=== PATIENT | female | born 1940 | race Caucasian/White ===

== ENCOUNTER 2019-06-04 14:19 | Emergency (ER) | payer OTHER ==
[2019-06-04 14:42] VITALS: BP 127/73; PULSE 99; TEMP 98.1; BMI 27.7
[2019-06-04 15:26] LABS: ALBUMIN 3.6 g/dl (3.4-5.0); BASO % 0.6 % (0-2.0); BILIRUBIN,TOTAL 0.7 mg/dl (0.2-1); CALCIUM 10.3 mg/dl (8.5-10); CREATININE 0.9 mg/dl (0.55-1.3); EOS % 2.2 % (0-4.5); HEMATOCRIT 36.6 % (32.4-45.2); HEMOGLOBIN 12.2 GM/dl (10.7-15.3); LYMPH % 16.6 % (8-40); MCH 29.9 pg (25.7-33.7); MCHC 33.3 g/dl (32.0-36.0); MEAN PLT VOLUME 8.3 fl (7.5-11.1); MONO % 7.3 % (3.8-10.2); NEUT % 73.3 % (42.8-82.8); PLATELET COUNT 297 K/MM3 (134-434); POTASSIUM 3.7 mmol/L (3.5-5.1); RBC 4.07 M/mm3 (3.60-5.2); RDW 13.4 % (11.6-15.6); TOT PROT 6.9 g/dl (6.4-8.2); WHITE BLOOD COUNT 7.3 K/mm3 (4.0-10.8)
--- NOTE | 2019-06-04 16:09 | PDOC ---
History of Present Illness - General Chief Complaint: Pain Stated Complaint: R/O DVT, CHF Time Seen by Provider: 06/04/19 14:20 - History of Present Illness Initial Comments: 06/04/19 16:12 79 years old with no significant past medical history presents to the emergency department with atraumatic lower extremity discomfort. No history of direct injury some swelling is noted to her left lower extremity she saw her primary care provider sent her to the emergency department for a basic CHF and rule out DVT work-up no chest pain no shortness of breath no nausea no vomiting diarrhea symptoms are mild to moderate persistent constant no exacerbating alleviating factors. Past History - Past Medical History Allergies/Adverse Reactions: Allergies Allergy/AdvReac Type Severity Reaction Status Date / Time azithromycin Allergy Mild "upset Verified 03/23/14 18:50 stomach" Home Medications: Ambulatory Orders Dicyclomine HCl 30 mg PO PRN PRN 03/23/14 Lactobacillus Acidophilus [Probiotic] 1 each PO DAILY PRN 03/23/14 Ursodiol 3 tab PO DAILY 03/23/14 Zolpidem Tartrate [Ambien] 5 mg PO HS 03/23/14 Olopatadine HCl 1 drop OU DAILY 06/04/19 Pitavastatin Calcium [Livalo] 2 mg PO BID 06/04/19 Polyethylene Glycol 3350 [Miralax 119 gm Btl -] 17 gm PO DAILY PRN 06/04/19 COPD: No GI Disorders: Yes (IBS) Hypercholesterolemia: Yes Liver Disease: Yes (BILIARY LIVER DISEASE) - Surgical History Abdominal Surgery: Yes Cholecystectomy: Yes - Psycho Social/Smoking Cessation Hx Smoking History: Never smoked Have you smoked in the past 12 months: No If you are a former smoker, when did you quit?: 1970 Hx Alcohol Use: No Drug/Substance Use Hx: No Substance Use Type: None Hx Substance Use Treatment: No Review of Systems - Review of Systems Comments:: 06/04/19 16:12 ROS: A complete review of 10 out of 10 review of systems is taken and is negative apart from what is previously mentioned below and in the HPI. *Physical Exam - Vital Signs Last Vital Signs Temp Pulse Resp BP Pulse Ox 98.1 F 99 H 16 127/73 99 06/04/19 14:20 06/04/19 14:20 06/04/19 14:20 06/04/19 14:20 06/04/19 14:20 - Physical Exam 06/04/19 16:12 Vitals: Triage Vital signs reviewed General Appearance: No acute distress, well nourished well developed, Cardiac: Regular rate and rhythym, no murmurs, no rubs, no gallops, Lungs: Clear to auscultation bilateral, good air movement bilaterally, Abdomen: Soft, non distended, normal bowel sounds, non tender to palpation Extremities: Full range of motion to all extremities, no cyanosis, clubbing, mild left lower leg extremity swelling Skin: Warm and dry, no rashes or lesions, no rash, no petechiae Neuro: AOX3; cranial Nerves 2-12 grossly intact, strength intact to all extremities, sensation intact to all extremities, gait normal Psych: Normal mood, normal affect ED Treatment Course - LABORATORY CBC & Chemistry Diagram: 06/04/19 14:50 06/04/19 14:50 - ADDITIONAL ORDERS Additional order review: Laboratory Results 06/04/19 06/04/19 14:50 14:50 Sodium 137 Potassium 3.7 Chloride 104 Carbon Dioxide 26 Anion Gap 7 L BUN 20.0 H Creatinine 0.9 Est GFR (CKD-EPI)AfAm 70.48 Est GFR (CKD-EPI)NonAf 60.81 Random Glucose 117 H Calcium 10.3 H Total Bilirubin 0.7 AST 17 ALT 15 Alkaline Phosphatase 71 Troponin I < 0.03 Total Protein 6.9 Albumin 3.6 06/04/19 14:50 RBC 4.07 MCV 90.0 MCHC 33.3 RDW 13.4 MPV 8.3 Neutrophils % 73.3 Lymphocytes % 16.6 Monocytes % 7.3 Eosinophils % 2.2 Basophils % 0.6 - RADIOLOGY Radiology Studies Ordered: Category Date Time Status CXRPORT [CHEST X-RAY PORTABLE*] [RAD] Stat Radiology 06/04/19 14:21 Completed DUPLEX VASCUL US-1 LEG [US] Stat Ultrasound 06/04/19 14:21 Completed Medical Decision Making - Medical Decision Making 06/04/19 16:13 Well-appearing no apparent distress with very mild lower extremity swelling no chest pain or shortness of breath We will check labs EKG ultrasound observe and reassess EKG performed at 1457 demonstrates normal sinus rhythm [address] elevations or T wave inversions Interpreted by me. Ultrasound negative for DVT Discharge - Discharge Information Problems reviewed: Yes Clinical Impression/Diagnosis: Leg pain Qualifiers: Laterality: left Qualified Code(s): M79.605 - Pain in left leg Condition: Good Disposition: HOME - Admission No - Follow up/Referral Referrals: Ritika Brown [Primary Care Provider] - - Patient Discharge Instructions Additional Instructions: Follow-up with your doctor next week. Rest. [id number] Tylenol as directed on package as needed for pain. Return to the emergency department for any chest pain shortness of breath severe worsening symptoms or further concerns. - Post Discharge Activity
--- NOTE | 2019-06-05 13:03 | EKG ---
Test Reason : Blood Pressure : / mmHG Vent. Rate : 093 BPM Atrial Rate : 093 BPM P-R Int : 172 ms QRS Dur : 084 ms QT Int : 374 ms P-R-T Axes : 045 039 030 degrees QTc Int : 465 ms NORMAL SINUS RHYTHM WHEN COMPARED WITH ECG OF 12-MAR-2019 14:38, NO SIGNIFICANT CHANGE WAS FOUND Confirmed by CARLOS STEVENS MD ([id number]) on 06/05/2019 1:03:10 PM Referred By: SORIN MCMILLAN Confirmed By:CARLOS STEVENS MD
== END 2019-06-04 16:38 | disposition home or self-care (01) ==
LOC: FER 14:19
DX: M79.605 Pain in left leg (principal); Z88.8 Allergy status to other drugs, medicaments and biological substances; Z87.891 Personal history of nicotine dependence; K76.9 Liver disease, unspecified; K58.9 Irritable bowel syndrome, unspecified; E78.00 Pure hypercholesterolemia, unspecified
CPT/HCPCS: 36415; 71045-TC-FY; 80053; 83880; 84484; 85025; 93005; 93971-TC; 99282-25

== ENCOUNTER 2023-02-27 07:12 | Inpatient (IN) | payer OTHER, BC ==
[2023-02-27] MEDS ORDERED: SODIUM CHLORIDE 1,000 ML IV STA (08:44)
[2023-02-27 09:48] LABS: BASO % 0.1 % (0-2.0); HEMATOCRIT 37.9 % (32.4-45.2); HEMOGLOBIN 12.8 GM/dL (10.7-15.3); MCH 29.8 pg (25.7-33.7); MCHC 33.8 g/dl (32.0-36.0); MEAN CELL VOLUME 88.1 fl (80-96); MEAN PLT VOLUME 7.7 fl (7.5-11.1); MONO % 6.7 % (3.8-10.2); NEUT % 89.2 % (42.8-82.8); PLATELET COUNT 239 10^3/uL (134-434); RBC 4.31 M/mm3 (3.60-5.2); RDW 14.4 % (11.6-15.6); WHITE BLOOD COUNT 14.4 K/mm3 (4.0-10.0)
[2023-02-27] MEDS ORDERED: ACETAMINOPHEN 1000 MG/100 ML BAG IVPB ONE (09:50)
[2023-02-27 10:10] LABS: POTASSIUM 3.4 mmol/L (3.5-5.1)
[2023-02-27 10:13] LABS: ALBUMIN 3.3 g/dl (3.4-5.0); BLOOD UREA NITROGEN 21.1 mg/dL (7-18); CALCIUM 10.4 mg/dL (8.5-10.1); MAGNESIUM 2.2 mg/dL (1.8-2.4)
[2023-02-27 10:18] LABS: BILIRUBIN,TOTAL 1.1 mg/dL (0.2-1)
[2023-02-27] MEDS ORDERED: SODIUM CHLORIDE 500 ML IV STA (10:35)
[2023-02-27 10:46] LABS: EPI CELLS 25 /uL (0-25.1); HYALINE CASTS 1 /uL (0-3.1); PH,URINE 5.5 (5.0-8.0); URINE APPEARANCE CLOUDY; URINE BACTERIA 105 /uL (0-1359); URINE BILIRUBIN NEGATIVE (NEGATIVE); URINE COLOR YELLOW; URINE GLUCOSE (UA) NEGATIVE (NEGATIVE); URINE KETONE 1+ (NEGATIVE); URINE LEUK ESTERASE TRACE (NEGATIVE); URINE NITRITE NEGATIVE (NEGATIVE); URINE PROTEIN 1+ (NEGATIVE); URINE UROBILINOGEN 0.2 mg/dL (0.2-1.0); URINE WBC 40 /uL (0-25.8)
[2023-02-27] MEDS ORDERED: CEFTRIAXONE 1,000 MG in DEXTROSE 5%-WATER - 50 ML IVPB ONE (10:57)
[2023-02-27] MEDS ORDERED: ACETAMINOPHEN INJECTION 100 ML IVPB ONE (10:58)
[2023-02-27 11:21] LABS: URINE CRYSTALS 0-2 /hpf; URINE RBC 28.6 /uL (0-23.9)
[2023-02-27] MEDS ORDERED: CEFTRIAXONE 1 GM/50 ML BAG ONE (11:27)
[2023-02-27] MEDS ORDERED: ASPIRIN 81 MG CHEWABLE TABLETS PO ONE (11:29)
[2023-02-27] MEDS ORDERED: ASPIRIN COATED 81 MG TABLET.EC ONE (11:40)
[2023-02-27] MEDS ORDERED: POTASSIUM CHLORIDE ORAL LIQUID 20 MEQ/15 ML PO ONE (15:18)
[2023-02-27 18:11] VITALS: BMI 29.1
[2023-02-27] MEDS: SODIUM CHLORIDE 1,000 ML IV SCH (18:35)
[2023-02-27] MEDS ORDERED: PNEUMOC 20-VAL CONJ-DIP CRM/PF 0.5 ML SYRINGE IM ONE (22:00)
[2023-02-28 08:06] LABS: POTASSIUM 3.3 mmol/L (3.5-5.1)
[2023-02-28 08:07] LABS: BASO % 0.3 % (0-2.0); EOS % 1.7 % (0-4.5); HEMATOCRIT 31.4 % (32.4-45.2); HEMOGLOBIN 10.6 GM/dL (10.7-15.3); LYMPH % 11.4 % (8-40); MCHC 33.8 g/dl (32.0-36.0); MEAN CELL VOLUME 88.7 fl (80-96); MEAN PLT VOLUME 8.5 fl (7.5-11.1); MONO % 7.2 % (3.8-10.2); NEUT % 79.4 % (42.8-82.8); PLATELET COUNT 192 10^3/uL (134-434); RBC 3.54 M/mm3 (3.60-5.2)
[2023-02-28 08:10] LABS: CALCIUM 9.2 mg/dL (8.5-10.1)
[2023-02-28 08:11] LABS: BLOOD UREA NITROGEN 21.6 mg/dL (7-18)
[2023-02-28 08:14] LABS: CREATININE 0.8 mg/dL (0.55-1.3)
[2023-02-28] MEDS: CEFTRIAXONE 1 GM in DEXTROSE 5%-WATER - 50 ML IVPB SCH (08:21)
[2023-02-28] MEDS: SODIUM CHLORIDE 1,000 ML IV SCH ×3 (09:03→22:00)
[2023-02-28] MEDS: ENOXAPARIN NA (PORCINE) 40 MG/0.4 ML DISP.SYRIN SQ SCH (10:03)
[2023-02-28] MEDS ORDERED: POTASSIUM CHLORIDE ORAL LIQUID 20 MEQ/15 ML PO ONE (11:20)
[2023-02-28] MEDS ORDERED: ACETAMINOPHEN 325 MG TABLET (FP) PO PRN (13:38)
[2023-03-01] MEDS: CEFTRIAXONE 1 GM in DEXTROSE 5%-WATER - 50 ML IVPB SCH (08:50)
[2023-03-01] MEDS: ENOXAPARIN NA (PORCINE) 40 MG/0.4 ML DISP.SYRIN SQ SCH (09:41)
[2023-03-01] MEDS ORDERED: MECLIZINE HCL 12.5 MG TABLET PO PRN (11:48)
[2023-03-01] MEDS: SODIUM CHLORIDE 1,000 ML IV SCH ×2 (11:52→22:55)
[2023-03-02] MEDS: SODIUM CHLORIDE 1,000 ML IV SCH ×3 (08:02→18:14)
[2023-03-02] MEDS: LORATADINE 10 MG TABLET PO SCH (09:28)
[2023-03-02] MEDS: ENOXAPARIN NA (PORCINE) 40 MG/0.4 ML DISP.SYRIN SQ SCH (09:28)
[2023-03-02] MEDS: FLUTICASONE PROP 0.05% 16 GM NASAL SPRAY NS SCH ×2 (10:43→21:26)
[2023-03-03] MEDS: ENOXAPARIN NA (PORCINE) 40 MG/0.4 ML DISP.SYRIN SQ SCH (09:47)
[2023-03-03] MEDS: LORATADINE 10 MG TABLET PO SCH (09:47)
[2023-03-03] MEDS: FLUTICASONE PROP 0.05% 16 GM NASAL SPRAY NS SCH ×2 (09:48→21:26)
[2023-03-03] MEDS ORDERED: ZOLPIDEM TARTRATE 5 MG TABLET PO PRN (23:12)
[2023-03-04 08:09] LABS: BASO % 0.8 % (0-2.0); EOS % 2.9 % (0-4.5); HEMATOCRIT 28.7 % (32.4-45.2); LYMPH % 20.5 % (8-40); MCH 30.2 pg (25.7-33.7); MEAN CELL VOLUME 86.3 fl (80-96); MEAN PLT VOLUME 7.9 fl (7.5-11.1); NEUT % 66.8 % (42.8-82.8); PLATELET COUNT 199 10^3/uL (134-434); RBC 3.32 M/mm3 (3.60-5.2); RDW 14.1 % (11.6-15.6); WHITE BLOOD COUNT 6.9 K/mm3 (4.0-10.0)
[2023-03-04 08:26] LABS: POTASSIUM 3.3 mmol/L (3.5-5.1)
[2023-03-04 08:38] LABS: CALCIUM 9.3 mg/dL (8.5-10.1)
[2023-03-04 08:39] LABS: BLOOD UREA NITROGEN 18.1 mg/dL (7-18)
[2023-03-04 08:41] LABS: CREATININE 0.7 mg/dL (0.55-1.3)
[2023-03-04 08:43] LABS: BILIRUBIN,TOTAL 1.2 mg/dL (0.2-1); TOT PROT 5.7 g/dl (6.4-8.2)
[2023-03-04 08:58] LABS: ALBUMIN 2.6 g/dl (3.4-5.0)
[2023-03-04] MEDS: FLUTICASONE PROP 0.05% 16 GM NASAL SPRAY NS SCH ×2 (11:02→21:04)
[2023-03-04] MEDS: ENOXAPARIN NA (PORCINE) 40 MG/0.4 ML DISP.SYRIN SQ SCH (11:02)
[2023-03-04] MEDS: LORATADINE 10 MG TABLET PO SCH (11:02)
[2023-03-05] MEDS: LORATADINE 10 MG TABLET PO SCH (11:05)
[2023-03-05] MEDS: FLUTICASONE PROP 0.05% 16 GM NASAL SPRAY NS SCH ×2 (11:06→21:40)
[2023-03-05] MEDS: ENOXAPARIN NA (PORCINE) 40 MG/0.4 ML DISP.SYRIN SQ SCH (11:06)
[2023-03-05] MEDS ORDERED: ACETAMINOPHEN 325 MG TABLET (FP) PO PRN (14:15)
[2023-03-05] MEDS ORDERED: MECLIZINE HCL 12.5 MG TABLET PO PRN (14:26)
[2023-03-06] MEDS: LORATADINE 10 MG TABLET PO SCH (10:00)
[2023-03-06] MEDS: ENOXAPARIN NA (PORCINE) 40 MG/0.4 ML DISP.SYRIN SQ SCH (10:00)
[2023-03-06] MEDS: FLUTICASONE PROP 0.05% 16 GM NASAL SPRAY NS SCH ×3 (10:00→23:23)
[2023-03-07] MEDS: LORATADINE 10 MG TABLET PO SCH (09:41)
[2023-03-07] MEDS: ENOXAPARIN NA (PORCINE) 40 MG/0.4 ML DISP.SYRIN SQ SCH (09:41)
[2023-03-07] MEDS: FLUTICASONE PROP 0.05% 16 GM NASAL SPRAY NS SCH ×2 (15:12→23:00)
[2023-03-08 06:44] VITALS: BP 139/89; PULSE 85; RESP 22; TEMP 98.4
[2023-03-08] MEDS: LORATADINE 10 MG TABLET PO SCH (09:55)
[2023-03-08] MEDS: ENOXAPARIN NA (PORCINE) 40 MG/0.4 ML DISP.SYRIN SQ SCH (09:55)
[2023-03-08] MEDS: FLUTICASONE PROP 0.05% 16 GM NASAL SPRAY NS SCH (10:00)
== END 2023-03-08 14:24 | DRG 557 ==
LOC: JER 07:12 → JERBED 11:31 → J4W 15:58 → J8W 03-05 13:54
PROVIDERS: ADMIT Internal Medicine; ATTEND Internal Medicine
DX: M62.82 Rhabdomyolysis (principal); U07.1 COVID-19; N39.0 Urinary tract infection, site not specified; I24.8 Other forms of acute ischemic heart disease; E78.00 Pure hypercholesterolemia, unspecified; R42 Dizziness and giddiness; R55 Syncope and collapse; D64.9 Anemia, unspecified
CPT/HCPCS: 36415; 70450-TC; 71045-TC-FY; 72125-TC; 72131-TC; 72170-TC-FY; 73502-TC-RT-FY; 73610-TC-LT-FY; 80048; 80053; 81003; 82550; 82553; 83735; 84439; 84443; 84484; 85025; 87086; 87635; 90677; 93005; 93010; 93306-TC; 93880-TC; 97116-GP; 97162-GP; 99285-25

== ENCOUNTER 2023-12-11 07:45 | Observation (INO) | payer OTHER, BC ==
[2023-12-11] MEDS ORDERED: ACETAMINOPHEN INJECTION 100 ML IVPB ONE (08:51)
[2023-12-11] MEDS: ACETAMINOPHEN 1000 MG/100 ML BAG IVPB ONE (09:14)
[2023-12-11 09:22] LABS: BASO % 0.4 % (0-2.0); EOS % 0.6 % (0-4.5); HEMATOCRIT 28.5 % (32.4-45.2); HEMOGLOBIN 9.6 GM/dL (10.7-15.3); LYMPH % 9.1 % (8-40); MCHC 33.9 g/dl (32.0-36.0); MEAN CELL VOLUME 88.6 fl (80-96); MEAN PLT VOLUME 7.8 fl (7.5-11.1); MONO % 5.2 % (3.8-10.2); NEUT % 84.7 % (42.8-82.8); PLATELET COUNT 210 10^3/uL (134-434); RBC 3.21 M/mm3 (3.60-5.2); RDW 14.9 % (11.6-15.6); WHITE BLOOD COUNT 7.9 K/mm3 (4.0-10.0)
[2023-12-11 09:37] LABS: INR 0.97 (0.83-1.09)
[2023-12-11 09:40] LABS: ACTIVATED PTT 23.9 SECONDS (25.2-36.5)
[2023-12-11 09:45] LABS: POTASSIUM 3.5 mmol/L (3.5-5.1)
[2023-12-11 09:49] LABS: CALCIUM 9.9 mg/dL (8.5-10.1)
[2023-12-11 09:50] LABS: ALBUMIN 3.3 g/dl (3.4-5.0); BLOOD UREA NITROGEN 23.4 mg/dL (7-18)
[2023-12-11 09:53] LABS: BILIRUBIN,TOTAL 0.4 mg/dL (0.2-1); CREATININE 0.9 mg/dL (0.55-1.3); TOT PROT 7.1 g/dl (6.4-8.2)
[2023-12-11 11:58] LABS: PH,URINE 5.5 (5.0-8.0); URINE APPEARANCE Clear; URINE BILIRUBIN Negative (NEGATIVE); URINE COLOR Yellow; URINE GLUCOSE (UA) Negative (NEGATIVE); URINE KETONE Negative (NEGATIVE); URINE LEUK ESTERASE Negative (NEGATIVE); URINE NITRITE Negative (NEGATIVE); URINE PROTEIN Negative (NEGATIVE); URINE UROBILINOGEN 0.2 mg/dL (0.2-1.0)
[2023-12-11 13:44] LABS: URINE RBC 6 /uL (0-23.9); URINE WBC 6 /uL (0-25.8)
[2023-12-11 13:45] LABS: EPI CELLS 7 /uL (0-25.1); HYALINE CASTS 0 /uL (0-3.1); URINE BACTERIA 402 /uL (0-1359)
[2023-12-11] MEDS ORDERED: POLYETHYLENE GLYCOL (HEALTHYLAX) 3350 17 GM PACKET PO PRN (15:14)
[2023-12-11 15:55] VITALS: BMI 30.4
[2023-12-11] MEDS: ATORVASTATIN CA 10 MG TABLET (FP) PO SCH (21:59)
[2023-12-11] MEDS: ACETAMINOPHEN 325 MG TABLET (FP) PO PRN (21:59)
[2023-12-11] MEDS: MELATONIN 1 MG TABLET PO SCH (21:59)
[2023-12-11] MEDS ORDERED: PATIENT'S OWN MEDICATION (NON-FORMULARY) (Pitavastatin Calcium [Livalo] 2 MG Tablet) PO SCH (22:00)
[2023-12-12 07:09] LABS: BASO % 0.6 % (0-2.0); EOS % 2.5 % (0-4.5); HEMATOCRIT 29.2 % (32.4-45.2); HEMOGLOBIN 9.6 GM/dL (10.7-15.3); LYMPH % 18.3 % (8-40); MCH 29.6 pg (25.7-33.7); MEAN CELL VOLUME 89.7 fl (80-96); MEAN PLT VOLUME 8.1 fl (7.5-11.1); MONO % 8.1 % (3.8-10.2); NEUT % 70.5 % (42.8-82.8); PLATELET COUNT 228 10^3/uL (134-434); RBC 3.26 M/mm3 (3.60-5.2); RDW 15.3 % (11.6-15.6); WHITE BLOOD COUNT 6.6 K/mm3 (4.0-10.0)
[2023-12-12 07:36] LABS: POTASSIUM 3.6 mmol/L (3.5-5.1)
[2023-12-12 07:37] LABS: ALBUMIN 3.1 g/dl (3.4-5.0); CALCIUM 9.8 mg/dL (8.5-10.1)
[2023-12-12 07:38] LABS: BLOOD UREA NITROGEN 16.3 mg/dL (7-18)
[2023-12-12 07:40] LABS: CREATININE 0.9 mg/dL (0.55-1.3)
[2023-12-12 07:43] LABS: BILIRUBIN,TOTAL 0.4 mg/dL (0.2-1); TOT PROT 6.7 g/dl (6.4-8.2)
[2023-12-12] MEDS ORDERED: LIDOCAINE 5% TOPICAL PATCH TP SCH (11:12)
[2023-12-12] MEDS: LIDOCAINE 5% TOPICAL PATCH TP SCH (11:28)
[2023-12-12] MEDS: URSODIOL 300 MG CAPSULE PO SCH (11:29)
[2023-12-12] MEDS: LIDOCAINE 4% PATCH TP SCH (11:35)
[2023-12-12] MEDS: HYDROCORTISONE ACETATE 25 MG/SUPP.RECT RC SCH (21:19)
[2023-12-12] MEDS: LIDOCAINE PATCH REMOVAL MC SCH (21:19)
[2023-12-13 08:10] LABS: BASO % 0.3 % (0-2.0); EOS % 1.4 % (0-4.5); HEMATOCRIT 27.5 % (32.4-45.2); HEMOGLOBIN 9.2 GM/dL (10.7-15.3); LYMPH % 6.9 % (8-40); MCH 30.1 pg (25.7-33.7); MCHC 33.5 g/dl (32.0-36.0); MEAN CELL VOLUME 89.9 fl (80-96); MEAN PLT VOLUME 8.4 fl (7.5-11.1); MONO % 10.1 % (3.8-10.2); NEUT % 81.3 % (42.8-82.8); PLATELET COUNT 172 10^3/uL (134-434); RBC 3.05 M/mm3 (3.60-5.2); RDW 14.9 % (11.6-15.6); WHITE BLOOD COUNT 9.1 K/mm3 (4.0-10.0)
[2023-12-13] MEDS: MECLIZINE HCL 12.5 MG TABLET PO PRN (10:52)
[2023-12-14] MEDS: DOCUSATE SODIUM 100 MG CAPSULE (FP) PO SCH (22:03)
[2023-12-16] MEDS: BISACODYL 5 MG TABLET.DR (FP) PO ONE (12:15)
[2023-12-19 11:09] VITALS: BP 131/65; PULSE 86; RESP 16; TEMP 98
== END 2023-12-19 13:01 ==
LOC: JER 07:45 → JERBED 12:51 → J4S 15:18
PROVIDERS: ADMIT Internal Medicine; ATTEND Internal Medicine
PROC: 3E033NZ Introduction of Analgesics, Hypnotics, Sedatives into Peripheral Vein, Percutaneous Approach (ICD-10-PCS; principal; 2023-12-11)
PROC: 2W3FX2Z Immobilization of Left Hand using Cast (ICD-10-PCS; 2023-12-11)
DX: S52.592A Other fractures of lower end of left radius, initial encounter for closed fracture (principal); W18.39XA Other fall on same level, initial encounter; Y92.002 Bathroom of unspecified non-institutional (private) residence as the place of occurrence of the external cause; S09.90XA Unspecified injury of head, initial encounter; Y93.89 Activity, other specified; K86.89 Other specified diseases of pancreas; K58.9 Irritable bowel syndrome, unspecified; M19.90 Unspecified osteoarthritis, unspecified site; R01.1 Cardiac murmur, unspecified; Z90.49 Acquired absence of other specified parts of digestive tract; R77.8 Other specified abnormalities of plasma proteins; K62.5 Hemorrhage of anus and rectum; Z87.891 Personal history of nicotine dependence
CPT/HCPCS: 29075; 36415; 70450-TC; 71045-TC-FY; 71275-TC; 72125-TC; 73070-TC-LT-FY; 73090-TC-LT-FY; 73110-TC-LT-FY; 73130-TC-LT-FY; 74174-TC; 74181-TC; 80053; 81003; 82272; 82550; 84484; 85025; 85610; 85730; 86301; 86850; 86900; 86901; 87086; 93005; 93010; 96374; 97116-GP; 97161-GP; 99285-25; G0378; J0131; Q9967

== ENCOUNTER 2024-03-28 19:46 | Emergency (ER) | payer OTHER, BC ==
[2024-03-28 19:52] VITALS: BP 0/0; PULSE 0; RESP 0; BMI 40.7
[2024-03-28 20:02] VITALS: TEMP 97.5
== END 2024-03-28 22:01 | disposition expired ==
LOC: JER 19:46
PROC: 5A12012 Performance of Cardiac Output, Single, Manual (ICD-10-PCS; principal; 2024-03-28)
DX: I46.9 Cardiac arrest, cause unspecified (principal)
CPT/HCPCS: 92950; 99285-25